=== PATIENT | female | born 1970 | race African-American/Black ===

== ENCOUNTER 2016-08-12 14:18 | Inpatient (IN) | payer MEDICAID, OTHER ==
--- NOTE | 2016-08-12 15:08 | ED ---
General Adult HPI - General Source: patient, RN notes reviewed, old records reviewed Mode of arrival: ambulatory <Xu Davidson - Last Filed: 08/12/16 15:07> <Xu Morris - Last Filed: 08/12/16 21:41> - General Chief complaint: Psychiatric Symptoms Stated complaint: Sent by [facility] Time Seen by Provider: 08/12/16 14:47 - History of Present Illness Initial comments: This is a 46-year-old female here for evaluation of such psychiatric disease. Patient has history of psychiatric disease and drug abuse. [facility], did experience thoughts of suicide. That, (Xu Davidson) - Related Data Allergies Allergy/AdvReac Type Severity Reaction Status Date / Time ibuprofen [From Motrin] Allergy Anaphylaxis Verified 08/12/16 15:38 ketorolac [From Toradol] Allergy Rash/Hives Verified 08/12/16 15:38 quetiapine [From Seroquel] Allergy Swelling Verified 08/12/16 15:38 tramadol [From Ultram] Allergy Rash/Hives Verified 08/12/16 15:38 Review of Systems ROS Other: All systems not noted in ROS Statement are negative. <Xu Davidson - Last Filed: 08/12/16 15:07> ROS Other: All systems not noted in ROS Statement are negative. <Xu Morris - Last Filed: 08/12/16 21:41> ROS Statement: Those systems with pertinent positive or pertinent negative responses have been documented in the HPI. Past Medical History Past Medical History: Osteoarthritis (OA), Thyroid Disorder History of Any Multi-Drug Resistant Organisms: None Reported Additional Past Surgical History / Comment(s): LEFT KNEE AND FOOT SX Past Psychological History: ADD/ADHD, Bipolar, Schizoaffective Disorder Smoking Status: Current every day smoker Past Alcohol Use History: None Reported Past Drug Use History: None Reported <Xu Davidson - Last Filed: 08/12/16 15:07> General Exam General appearance: alert, in no apparent distress Head exam: Present: atraumatic, normocephalic, normal inspection Eye exam: Present: normal appearance, PERRL, EOMI. Absent: scleral icterus, conjunctival injection, periorbital swelling ENT exam: Present: normal exam, mucous membranes moist Neck exam: Present: normal inspection. Absent: tenderness, meningismus, lymphadenopathy Respiratory exam: Present: normal lung sounds bilaterally. Absent: respiratory distress, wheezes, rales, rhonchi, stridor Cardiovascular Exam: Present: regular rate, normal rhythm, normal heart sounds. Absent: systolic murmur, diastolic murmur, rubs, gallop, clicks GI/Abdominal exam: Present: soft, normal bowel sounds. Absent: distended, tenderness, guarding, rebound, rigid Extremities exam: Present: normal inspection, full ROM, normal capillary refill. Absent: tenderness, pedal edema, joint swelling, calf tenderness Back exam: Present: normal inspection Neurological exam: Present: alert, oriented X3, CN II-XII intact Psychiatric exam: Present: normal affect, normal mood Skin exam: Present: warm, dry, intact, normal color. Absent: rash <Xu Davidson - Last Filed: 08/12/16 15:07> Medical Decision Making - Lab Data Result diagrams: 08/12/16 18:22 08/12/16 18:22 <Xu Morris - Last Filed: 08/12/16 21:41> - Lab Data Lab Results 08/12/16 08/12/16 08/12/16 Range/Units 14:57 18:22 18:22 WBC 8.2 (3.8-10.6) k/uL RBC 3.99 (3.80-5.40) m/uL Hgb 11.6 (11.4-16.0) gm/dL Hct 36.8 (34.0-46.0) % MCV 92.3 (80.0-100.0) fL MCH 29.0 (25.0-35.0) pg MCHC 31.4 (31.0-37.0) g/dL RDW 15.9 H (11.5-15.5) % Plt Count 406 (150-450) k/uL Neutrophils % 48 % Lymphocytes % 42 % Monocytes % 5 % Eosinophils % 3 % Basophils % 1 % Neutrophils # 3.9 (1.3-7.7) k/uL Lymphocytes # 3.4 (1.0-4.8) k/uL Monocytes # 0.4 (0-1.0) k/uL Eosinophils # 0.2 (0-0.7) k/uL Basophils # 0.0 (0-0.2) k/uL Hypochromasia Slight Sodium 140 (137-145) mmol/L Potassium 4.2 (3.5-5.1) mmol/L Chloride 104 (98-107) mmol/L Carbon Dioxide 22 (22-30) mmol/L Anion Gap 14 mmol/L BUN 10 (7-17) mg/dL Creatinine 0.80 (0.52-1.04) mg/dL Est GFR (MDRD) Af Amer >60 (>60 ml/min/1.73 sqM) Est GFR (MDRD) Non-Af >60 (>60 ml/min/1.73 sqM) Glucose 119 H (74-99) mg/dL Calcium 9.3 (8.4-10.2) mg/dL Total Bilirubin 0.2 (0.2-1.3) mg/dL AST 15 (14-36) U/L ALT 14 (9-52) U/L Alkaline Phosphatase 60 (38-126) U/L Total Protein 7.5 (6.3-8.2) g/dL Albumin 3.8 (3.5-5.0) g/dL Urine Opiates Screen Not Detected (NotDetected) Ur Oxycodone Screen Not Detected (NotDetected) Urine Methadone Screen Not Detected (NotDetected) Ur Propoxyphene Screen Not Detected (NotDetected) Ur Barbiturates Screen Not Detected (NotDetected) Valproic Acid 64.5 ug/mL U Tricyclic Antidepress Not Detected (NotDetected) Ur Phencyclidine Scrn Not Detected (NotDetected) Ur Amphetamines Screen Not Detected (NotDetected) U Methamphetamines Scrn Not Detected (NotDetected) U Benzodiazepines Scrn Not Detected (NotDetected) Urine Cocaine Screen Not Detected (NotDetected) U Marijuana (THC) Screen Not Detected (NotDetected) Disposition <Xu Davidson - Last Filed: 08/12/16 15:07> Time of Disposition: 21:41 <Xu Morris - Last Filed: 08/12/16 21:41> Clinical Impression: Suicidal ideation, Depression Disposition: ADMITTED IP TO THIS HOSP
[2016-08-12] MEDS ORDERED: LORazepam 1 MG TAB PO STA (17:10)
[2016-08-12 18:32] LABS: Basophils % (A) 1 %; CH 28.8; CHCM 31.4; Eosinophils # (A) 0.2 k/uL (0-0.7); Eosinophils % (A) 3 %; HCT 36.8 % (34.0-46.0); HDW 2.61; HGB 11.6 gm/dL (11.4-16.0); Hypochromasia Slight; Luc # (Auto) 0.19; Luc % (Auto) 2; Lymphocytes # (A) 3.4 k/uL (1.0-4.8); Lymphocytes % (A) 42 %; MCHC 31.4 g/dL (31.0-37.0); MCV 92.3 fL (80.0-100.0); Mean Platelet Volume 6.9; Monocytes # (A) 0.4 k/uL (0-1.0); Monocytes % (A) 5 %; Neutrophils # (A) 3.9 k/uL (1.3-7.7); Neutrophils % (A) 48 %; RBC 3.99 m/uL (3.80-5.40); RDW 15.9 % (11.5-15.5); WBC 8.2 k/uL (3.8-10.6); WBC (Perox) 8.37
[2016-08-12 18:40] LABS: ALT 14 U/L (9-52); AST 15 U/L (14-36); Alkaline Phosphatase 60 U/L (38-126); Anion Gap 14 mmol/L; Blood Urea Nitrogen 10 mg/dL (7-17); Calcium 9.3 mg/dL (8.4-10.2); Carbon Dioxide 22 mmol/L (22-30); Chloride 104 mmol/L (98-107); Glucose 119 mg/dL (74-99); Non-African American GFR(MDRD) >60 (>60 ml/min/1.73 sqM); Potassium 4.2 mmol/L (3.5-5.1); Sodium 140 mmol/L (137-145); Total Bilirubin 0.2 mg/dL (0.2-1.3); Total Protein 7.5 g/dL (6.3-8.2)
[2016-08-12] MEDS ORDERED: ACETAMINOPHEN TAB 500 MG TAB PO STA (18:54)
[2016-08-12] MEDS ORDERED: LORazepam 2 MG/ML SYRINGE IM STA (19:37)
[2016-08-12] MEDS ORDERED: ACETAMINOPHEN TAB 325 MG TAB PO PRN (21:51)
[2016-08-12] MEDS ORDERED: MAG HYDROX/AL HYDROX/SIMETH 30 ML CUP PO PRN (21:51)
[2016-08-12] MEDS ORDERED: MAGNESIUM HYDROXIDE 2,400 MG/10 ML CUP PO PRN (21:51)
[2016-08-12] MEDS ORDERED: busPIRone HCl 5 MG TAB PO PRN (21:52)
[2016-08-12] MEDS ORDERED: MIRTAZAPINE 15 MG TAB PO PRN (21:52)
[2016-08-12] MEDS ORDERED: LORazepam 1 MG TAB PO PRN (21:56)
[2016-08-12] MEDS ORDERED: LORazepam 2 MG/ML SYRINGE IM PRN (21:56)
[2016-08-12] MEDS: PRAZOSIN 1 MG CAP PO SCH (22:57)
[2016-08-12] MEDS: metroNIDAZOLE 500 MG TAB PO SCH (22:57)
[2016-08-12] MEDS: HALOPERIDOL 5 MG TAB PO SCH (22:59)
[2016-08-12] MEDS: LURASIDONE 40 MG TAB PO SCH (22:59)
[2016-08-12] MEDS: LEVOTHYROXINE 50 MCG TAB PO SCH ×2 (23:03→23:15)
[2016-08-13 06:27] VITALS: RESP 18
[2016-08-13] MEDS: LEVOTHYROXINE 50 MCG TAB PO SCH (06:44)
[2016-08-13] MEDS: PANTOPRAZOLE 40 MG TABLET PO SCH (08:28)
[2016-08-13] MEDS: LORATADINE 10 MG TAB PO SCH (10:23)
[2016-08-13] MEDS: ACYCLOVIR 200 MG CAP PO SCH ×2 (10:23→20:11)
[2016-08-13] MEDS: VENLAFAXINE HCL ER 75 MG CAP PO SCH (10:25)
[2016-08-13] MEDS: PROPRANOLOL 20 MG TAB PO SCH (10:25)
[2016-08-13] MEDS: HALOPERIDOL 5 MG TAB PO SCH ×2 (10:26→20:11)
[2016-08-13] MEDS: LURASIDONE 40 MG TAB PO SCH ×2 (10:26→20:12)
[2016-08-13] MEDS: metroNIDAZOLE 500 MG TAB PO SCH ×2 (10:29→20:12)
--- NOTE | 2016-08-13 11:00 | P.HP ---
Psychiatric H&P - . H&P Date: 08/13/16 History & Physical: IDENTIFYING DATA: Ms. Torres is a 46-year-old -Omani woman admitted voluntarily to the psychiatry unit with complaints of depression and suicidal ideation. HISTORY OF PRESENT ILLNESS: Staff from [facility] brought her to the emergency room. She was admitted there on Friday, 2016. She stated that she was feeling well when she arrived at [facility] but over the last couple days she's been feeling more fatigued and depressed. On day of admission she expressed suicidal thought to hang herself. She told the staff at [facility] that she thought about tieing a bedsheet to the fence and hanging herself. She was referred to the [facility] program from the psychiatric unit at [facility] in [place]. She was on the psychiatric unit in [facility] for one week for the treatment complaints of depression and suicidal ideation. Her discharge psychotropic medications included: BuSpar 15 mg 3 times a day, Depakote 2000 mg at bedtime, Haldol 5 mg twice a day, Latuda 60 mg twice a day, Remeron 30 mg at bedtime, prazosin 2 mg at bedtime and Effexor 75 mg daily. She described thoughts of suicide but denied plan or intent. Her primary complaint was extreme fatigue. She initially declined this interview because she felt so fatigued. In addition to the fatigue she feels sad, pessimistic about the future and anhedonic. She described guilt, self criticalness and self dislike over history of drug use. She has lost interest in most of her activities. She has a marked increase in sleep and a decrease in appetite. She described fluctuation in her mood and related to the increased depression and fatigue to the onset of her menstrual cycle. She states that her mood improves and she sometimes "becomes manic" following the end of the menstrual cycle. During the "manic" episode she has a decreased need for sleep and is very energetic and active. The "manic" episodes may last a few days or week. She denied a general sense of anxiety that contributes to her fatigue. She denied obsessions or compulsions. She denied psychotic symptoms such as auditory or visual hallucinations, ideas reference, thought insertion, thought broadcasting or thought control. She denied recent use of alcohol and drugs. She last used heroin cocaine in May 2016. PAST PSYCHIATRIC HISTORY: She was admitted to [facility] in [facility] in 2013 for the treatment of depression and suicidal ideation. She is enrolled with [facility]. She denied past history of suicide attempts. PAST MEDICAL HISTORY: Osteoarthritis, seasonal ALLERGIES and hypothyroid ALLERGIES: Ibuprofen, ketorolac, quetiapine, tramadol SUBSTANCE USE HISTORY: She's been using heroin since she was in her 30s. She was introduced to heroin by her friend and started using because it was "free". She was injecting heroin daily. She last injected in May 2016. She denied that she shares needles. She is hepatitis C and HIV negative. She also smokes cocaine. She's been smoking cocaine since she was 15 years old. She uses cocaine 1-2 times a week spending as much as $300. She was in [facility] in 2014 and was abstinent for about one month after she left the program. She was in a methadone treatment program in [place] for 1 year. She was abstinent from heroin but continued to use cocaine. She relapsed to heroin about 1 year after discharge from the program. She smokes marijuana "occasionally" she denied use of other drugs. She described "occasional" use of alcohol. FAMILY PSYCHIATRIC/SUBSTANCE USE HISTORY: Her father had a history of substance use problem LEGAL HISTORY: She is not on probation, parole or has pending charges. She has a past conviction for retail fraud. SOCIAL HISTORY: She's born and raised in [facility]. Her father is . She has 2 brothers and 6 sisters. She currently lives with her mother who has a dementia in [facility]. She is unemployed and receives social security income for mental health diagnosis. She been and twice. She has 3 adult children and no grandchildren.. MENTAL STATUS EXAM: She presented as a disheveled appearing 46-year-old dark skinned -Omani female who appeared markedly fatigued and yawned throughout the interview. She made eye contact and appeared to attend to the interview. She had no distinguishing features or prominent physical abnormalities. She had a flat facial expression. She was alert and oriented to person, place and time. She showed psychomotor retardation but no abnormal involuntary movements. Her speech was spontaneous with decreased rate, rhythm and volume. She had no articulation difficulties. Her affect was depressed and not reactive. She describes suicidal thoughts but denied intent or plan. She denies homicidal ideation. She expressed feelings of hopelessness, helplessness and worthlessness. She ruminated about the severity of her fatigue. She did not express phobias, ideas reference, paranoid ideation or delusional thoughts. Her thinking was concrete. Her associations were logical. She denied hallucinations and did not appear to be responding to internal stimuli. Global impression of intellect is average. She is unaware of her mental illness and need for treatment. STRENGTHS: Good physical health, stable housing, stable income. WEAKNESSES: Substance use problems. IMPRESSION: She is a 46-year-old female who has a history of a cocaine and opiate use disorder. She presented to unit on transfer from [facility] with complaints of increasing depression and suicidal ideation. She described history of recurrent depression and symptoms suggestive of possible ruben or hypomania. The depression developed over the last 2-3 days and she believes is related to her menstrual cycle. She currently describes suicidal thoughts but denies intent or plan. The most prominent symptoms system marked fatigue. There is no evidence of psychosis. She we treated on an outpatient basis with a combination of psychopharmacology and multimodal therapy. PRINCIPLE DIAGNOSIS: Unspecified depressive disorder, rule out major depressive disorder recurrent, rule out bipolar disorder current episode depressed, opiate use disorder severe, cocaine use disorder severe RECOMMENDATION: Continue inpatient hospitalization. Suicide precautions with 15 minute checks. Consult medicine for initial physical exam and medical history. Continue outpatient medications including Zovirax 200 mg twice a day, BuSpar 50 mg 3 times a day, Depakote ER 2000 mg at bedtime, Haldol 5 mg twice a day, Synthroid 50 g daily, Claritin 5 mg daily, Latuda 60 mg twice a day, Flagyl 500 mg twice a day, Remeron 30 mg at bedtime, Protonix 40 mg before meals breakfast, Minipress 2 mg at bedtime, Inderal 20 mg daily and Effexor XR 75 mg daily. Determine if we can consolidate the multiple medications including a duplicate anti-a psychotic/mood stabilizers and antidepressants. Encourage participation in therapeutic groups and activities. Evaluate clinical status response to treatment daily basis. Discharge back to [facility]. Allergies Allergy/AdvReac Type Severity Reaction Status Date / Time ibuprofen [From Motrin] Allergy Anaphylaxis Verified 08/12/16 22:29 ketorolac [From Toradol] Allergy Rash/Hives Verified 08/12/16 22:29 quetiapine [From Seroquel] Allergy Swelling Verified 08/12/16 22:29 tramadol [From Ultram] Allergy Rash/Hives Verified 08/12/16 22:29 Vital Signs Temp 98.2 F 08/13/16 06:26 Pulse 79 08/13/16 06:26 Resp 18 08/13/16 06:26 BP 113/67 08/13/16 06:26 Pulse Ox 98 08/12/16 22:20 Intake & Output 08/12/16 08/13/16 08/13/16 18:59 06:59 18:59 Weight 117.934 kg Laboratory Last Values WBC 8.2 k/uL (3.8-10.6) 08/12/16 18:22 RBC 3.99 m/uL (3.80-5.40) 08/12/16 18:22 Hgb 11.6 gm/dL (11.4-16.0) 08/12/16 18:22 Hct 36.8 % (34.0-46.0) 08/12/16 18:22 MCV 92.3 fL (80.0-100.0) 08/12/16 18:22 MCH 29.0 pg (25.0-35.0) 08/12/16 18:22 MCHC 31.4 g/dL (31.0-37.0) 08/12/16 18:22 RDW 15.9 % (11.5-15.5) H 08/12/16 18:22 Plt Count 406 k/uL (150-450) 08/12/16 18:22 Neutrophils % 48 % 08/12/16 18:22 Lymphocytes % 42 % 08/12/16 18:22 Monocytes % 5 % 08/12/16 18:22 Eosinophils % 3 % 08/12/16 18:22 Basophils % 1 % 08/12/16 18:22 Neutrophils # 3.9 k/uL (1.3-7.7) 08/12/16 18:22 Lymphocytes # 3.4 k/uL (1.0-4.8) 08/12/16 18:22 Monocytes # 0.4 k/uL (0-1.0) 08/12/16 18:22 Eosinophils # 0.2 k/uL (0-0.7) 08/12/16 18:22 Basophils # 0.0 k/uL (0-0.2) 08/12/16 18:22 Hypochromasia Slight 08/12/16 18:22 Sodium 140 mmol/L (137-145) 08/12/16 18:22 Potassium 4.2 mmol/L (3.5-5.1) 08/12/16 18:22 Chloride 104 mmol/L (98-107) 08/12/16 18:22 Carbon Dioxide 22 mmol/L (22-30) 08/12/16 18:22 Anion Gap 14 mmol/L 08/12/16 18:22 BUN 10 mg/dL (7-17) 08/12/16 18:22 Creatinine 0.80 mg/dL (0.52-1.04) 08/12/16 18:22 Est GFR (MDRD) Af Amer >60 (>60 ml/min/1.73 sqM) 08/12/16 18:22 Est GFR (MDRD) Non-Af >60 (>60 ml/min/1.73 sqM) 08/12/16 18:22 Glucose 119 mg/dL (74-99) H 08/12/16 18:22 Calcium 9.3 mg/dL (8.4-10.2) 08/12/16 18:22 Total Bilirubin 0.2 mg/dL (0.2-1.3) 08/12/16 18:22 AST 15 U/L (14-36) 08/12/16 18:22 ALT 14 U/L (9-52) 08/12/16 18:22 Alkaline Phosphatase 60 U/L (38-126) 08/12/16 18:22 Total Protein 7.5 g/dL (6.3-8.2) 08/12/16 18:22 Albumin 3.8 g/dL (3.5-5.0) 08/12/16 18:22 TSH 1.930 mIU/L (0.465-4.680) 08/12/16 18:22 Urine Opiates Screen Not Detected (NotDetected) 08/12/16 14:57 Ur Oxycodone Screen Not Detected (NotDetected) 08/12/16 14:57 Urine Methadone Screen Not Detected (NotDetected) 08/12/16 14:57 Ur Propoxyphene Screen Not Detected (NotDetected) 08/12/16 14:57 Ur Barbiturates Screen Not Detected (NotDetected) 08/12/16 14:57 Valproic Acid 64.5 ug/mL 08/12/16 18:22 U Tricyclic Antidepress Not Detected (NotDetected) 08/12/16 14:57 Ur Phencyclidine Scrn Not Detected (NotDetected) 08/12/16 14:57 Ur Amphetamines Screen Not Detected (NotDetected) 08/12/16 14:57 U Methamphetamines Scrn Not Detected (NotDetected) 08/12/16 14:57 U Benzodiazepines Scrn Not Detected (NotDetected) 08/12/16 14:57 Urine Cocaine Screen Not Detected (NotDetected) 08/12/16 14:57 U Marijuana (THC) Screen Not Detected (NotDetected) 08/12/16 14:57 08/13/16 08:15 08/13/16 10:30
[2016-08-13] MEDS: PRAZOSIN 1 MG CAP PO SCH (20:12)
[2016-08-13] MEDS ORDERED: DIVALPROEX ER 500 MG TAB.ER.24H PO SCH (21:00)
[2016-08-14] MEDS: LEVOTHYROXINE 50 MCG TAB PO SCH (05:41)
[2016-08-14 07:16] VITALS: BP 117/59; PULSE 86; TEMP 97.6
[2016-08-14] MEDS: LORATADINE 10 MG TAB PO SCH (09:32)
[2016-08-14] MEDS: metroNIDAZOLE 500 MG TAB PO SCH (09:32)
[2016-08-14] MEDS: ACYCLOVIR 200 MG CAP PO SCH (09:33)
[2016-08-14] MEDS: LURASIDONE 40 MG TAB PO SCH (09:33)
[2016-08-14] MEDS: HALOPERIDOL 5 MG TAB PO SCH (09:33)
[2016-08-14] MEDS: PROPRANOLOL 20 MG TAB PO SCH (09:34)
[2016-08-14] MEDS: PANTOPRAZOLE 40 MG TABLET PO SCH (09:34)
[2016-08-14] MEDS: VENLAFAXINE HCL ER 75 MG CAP PO SCH (09:34)
[2016-08-14] MEDS: NICOTINE POLACRILEX 2 MG GUM BUCCAL PRN ×2 (10:29→13:42)
--- NOTE | 2016-08-14 12:38 | P.DS ---
Providers Date of admission: 08/12/16 21:47 Attending physician: Jt Chen MD Consults: 08/12/16 21:51 Consult Physician Routine Consulting Provider: Mei Vaz Consult Reason/Comments: Medical Management Do you want consulting provider notified?: Yes, Notify in am Primary care physician: Stated None - Discharge Diagnosis(es) (1) Opioid use disorder, severe, dependence Current Visit: Yes Status: Chronic Priority: High (2) Cocaine use disorder, severe, dependence Current Visit: Yes Status: Chronic Priority: High (3) Depression Current Visit: Yes Status: Acute Priority: Medium (4) Suicidal ideation Current Visit: Yes Status: Acute Priority: Low Hospital Course: Ms. Torres is a 46-year-old -Malawian woman admitted voluntarily to the psychiatry unit with complaints of depression and suicidal ideation. Staff from [facility] brought her to the emergency room. She was admitted there on 08/02/2016. She stated that she was feeling well when she arrived at [facility] but over the last couple days she' s been feeling more fatigued and depressed. On day of admission she expressed suicidal thought to hang herself. She told the staff at [facility] that she thought about tieing a bedsheet to the fence and hanging herself. She was referred to the [facility] program from the psychiatric unit at [facility]. She was on the psychiatric unit in [facility] for one week for the treatment complaints of depression and suicidal ideation. Her discharge psychotropic medications included: BuSpar 15 mg 3 times a day, Depakote 2000 mg at bedtime, Haldol 5 mg twice a day, Latuda 60 mg twice a day, Remeron 30 mg at bedtime, prazosin 2 mg at bedtime and Effexor 75 mg daily. She described thoughts of suicide but denied plan or intent. Her primary complaint was extreme fatigue. She initially declined this interview because she felt so fatigued. In addition to the fatigue she feels sad, pessimistic about the future and anhedonic. She described guilt, self criticalness and self dislike over history of drug use. She has lost interest in most of her activities. She has a marked increase in sleep and a decrease in appetite. She described fluctuation in her mood and related to the increased depression and fatigue to the onset of her menstrual cycle. She states that her mood improves and she sometimes "becomes manic" following the end of the menstrual cycle. During the "manic" episode she has a decreased need for sleep and is very energetic and active. The "manic" episodes may last a few days or week. She denied a general sense of anxiety that contributes to her fatigue. She denied obsessions or compulsions. She denied psychotic symptoms such as auditory or visual hallucinations, ideas reference, thought insertion, thought broadcasting or thought control. She denied recent use of alcohol and drugs. She last used heroin cocaine in May 2016. She was admitted to [facility] in [facility] in 2013 for the treatment of depression and suicidal ideation. She is enrolled with [facility]. She denied past history of suicide attempts. She's been using heroin since she was in her 30s. She was introduced to heroin by her friend and started using because it was "free". She was injecting heroin daily. She last injected in May 2016. She denied that she shares needles. She is hepatitis C and HIV negative. She also smokes cocaine. She's been smoking cocaine since she was 15 years old. She uses cocaine 1-2 times a week spending as much as $300. She was in [facility] in 2014 and was abstinent for about one month after she left the program. She was in a methadone treatment program in [place] for 1 year. She was abstinent from heroin but continued to use cocaine. She relapsed to heroin about 1 year after discharge from the program. She smokes marijuana "occasionally" she denied use of other drugs. She described "occasional" use of alcohol. We admitted her to the psychiatric unit under the care of this magnetic tape typewriter operator. We provided a biopsychosocial assessment. The parts consultant completed the initial physical exam and medical history and diagnosed tobacco use disorder, osteoarthritis and hypothyroidism. We continued her outpatient medications including acyclovir 200 mg twice a day, BuSpar 50 mg 3 times a day, Depakote 2000 mg at bedtime, Haldol 5 mg twice a day, Synthroid 50 g daily, Claritin 5 mg daily, Latuda 60 mg twice a day, Flagyl 500 mg twice a day, Remeron 30 mg at bedtime, Protonix 40 mg before meals breakfast, Minipress 2 mg at bedtime, Inderal 20 mg daily and Effexor 75 mg daily. Her primary complaint that her sensation was extreme fatigue. She spent the first day of her hospital stay in bed only coming out for meals and interviews with staff. She attributed her depression and suicidal thoughts to her extreme fatigue. She alleged that she becomes fatigued during her menstrual cycle and her outpatient psychiatrist usually increases the dose of her psychiatric medications temporarily. At the end of her cycle the fatigue and depression fades and she returns to her normal dose of her psychotropic medications. On the second her hospitalization she reported a marked decrease in her fatigue. She denied depression or suicidal ideation. She requested to be current to [facility] to resume her substance abuse treatment. She came out of her bed dressed in participation in therapeutic groups and activities. She posed no management problem and displayed no episodes of behavioral dyscontrol or self-harm. She denied suicidal thoughts or wishes. She denied psychotic symptoms such as auditory or visual hallucinations, ideas reference, thought insertion or thought broadcasting. She showed no signs or symptoms of ruben or hypomania. She was pleasant on approach and her thinking was coherent, organized and goal directed. Patient Condition at Discharge: Stable Plan - Discharge Summary New Discharge Prescriptions: Nicotine Polacrilex [Quit 2] 2 mg BUCCAL Q2H PRN #28 lozenge PRN Reason: Nicotine Cravings Discharge Medication List Acetaminophen Tab [Tylenol] 1,000 mg PO BID PRN 08/12/16 [History] Calcium Carb/Magnesium Hydrox [Rolaids Chewable Tablet] 1 tab PO TID 08/12/16 [ History] Divalproex Sodium [Depakote] 2,000 mg PO HS 08/12/16 [History] Levothyroxine Sodium [Synthroid] 50 mcg PO DAILY 08/12/16 [History] Multivitamins, Thera [Multivitamin (formulary)] 1 tab PO DAILY 08/12/16 [History ] Omeprazole [PriLOSEC] 20 mg PO DAILY 08/12/16 [History] Thiamine [Vitamin B-1] 100 mg PO DAILY 08/12/16 [History] Acyclovir [Zovirax] 200 mg PO BID cap 08/14/16 [Rx] Haloperidol [Haldol] 5 mg PO BID tab 08/14/16 [Rx] Loratadine [Claritin] 5 mg PO DAILY tab 08/14/16 [Rx] Lurasidone [Latuda] 60 mg PO BID tab 08/14/16 [Rx] Mirtazapine [Remeron] 30 mg PO HS PRN tab 08/14/16 [Rx] Nicotine Polacrilex [Quit 2] 2 mg BUCCAL Q2H PRN #28 lozenge 08/14/16 [Rx] Prazosin [Minipress] 2 mg PO HS cap 08/14/16 [Rx] Propranolol [Inderal] 20 mg PO DAILY tab 08/14/16 [Rx] Venlafaxine HCl ER [Effexor XR] 75 mg PO DAILY cap 08/14/16 [Rx] busPIRone HCl [Buspar] 15 mg PO TID PRN tab 08/14/16 [Rx] metroNIDAZOLE [Flagyl] 500 mg PO BID tab 08/14/16 [Rx] Follow up Appointment(s)/Referral(s): None,Stated [Primary Care Provider] - 1-2 days Discharge Disposition: HOME SELF-CARE
--- NOTE | 2016-08-14 16:15 | P.CONS ---
History of Present Illness - Reason for Consult Consult date: 08/13/16 Medical management - History of Present Illness This is a 46-year-old -[place] female with past history of osteoarthritis in the knees and back, gastroesophageal reflux disease, hypothyroidism. Her primary care physician is at [facility] in [place]. Patient states that she has been at [facility] for 1 week due to cocaine and heroin abuse. She states she usually smokes cocaine and shoots heroin. She denies any marijuana or alcohol use. Patient states that she has been depressed with suicidal thoughts and was going to hang herself with a bed sheet. Staff brought her to [facility] emergency center for evaluation. TSH 1.930, valproic acid 64.5. Patient has been admitted to the mental health unit. Patient is also on Flagyl for bacterial vaginosis. Review of Systems All systems: negative Constitutional: Denies chills, Denies fever Eyes: denies blurred vision, denies pain Ears, nose, mouth and throat: Denies headache, Denies sore throat Cardiovascular: Denies chest pain, Denies shortness of breath Respiratory: Denies cough Gastrointestinal: Denies abdominal pain, Denies diarrhea, Denies nausea, Denies vomiting Genitourinary: Denies dysuria, Denies hematuria Musculoskeletal: Denies myalgias Integumentary: Denies pruritus, Denies rash Neurological: Denies numbness, Denies weakness Psychiatric: Reports depression, Denies anxiety Endocrine: Denies fatigue, Denies weight change Past Medical History Past Medical History: GERD/Reflux, Osteoarthritis (OA), Thyroid Disorder History of Any Multi-Drug Resistant Organisms: None Reported Additional Past Surgical History / Comment(s): Left Knee arthroscopically and Left bunionectomy and lengthening of the Achilles tendon Past Anesthesia/Blood Transfusion Reactions: No Reported Reaction Past Psychological History: ADD/ADHD, Bipolar, Schizoaffective Disorder Smoking Status: Current every day smoker Past Alcohol Use History: Occasional Additional Past Alcohol Use History / Comment(s): Patient is a smoker one and half packs per day since she was 15 years of age. She also has history of cocaine and heroin use. Patient shoots heroin. She denies any history of hepatitis C. Past Drug Use History: Cocaine, Heroin Additional Drug Use History / Comment(s): Pt. admits to abusing cocaine and heroin in May. Patient was admitted to [facility] 08/02/16-08/12/16. - Past Family History Mother History Unknown: Yes Additional Family Medical History / Comment(s): Mother is alive at age 79 with history of diabetes, chronic kidney disease, Alzheimer's dementia, CHF. Father History Unknown: Yes Additional Family Medical History / Comment(s): Father at age 79 from a myocardial infarction. Brother(s) Additional Family Medical History / Comment(s): Patient has 1 brother and 8 half -brothers with no major medical problems. Patient has 6/2 sisters with no major medical problems. Patient has 2 sons and one daughter with no major medical problems. Medications and Allergies Home Medications Medication Instructions Recorded Confirmed Type Acetaminophen Tab [Tylenol] 1,000 mg PO BID PRN 08/12/16 08/12/16 History Calcium Carb/Magnesium Hydrox 1 tab PO TID 08/12/16 08/12/16 History [Rolaids Chewable Tablet] Divalproex Sodium [Depakote] 2,000 mg PO HS 08/12/16 08/12/16 History Levothyroxine Sodium [Synthroid] 50 mcg PO DAILY 08/12/16 08/12/16 History Multivitamins, Thera [Multivitamin 1 tab PO DAILY 08/12/16 08/12/16 History (formulary)] Omeprazole [PriLOSEC] 20 mg PO DAILY 08/12/16 08/12/16 History Thiamine [Vitamin B-1] 100 mg PO DAILY 08/12/16 08/12/16 History Cetirizine HCl [Zyrtec] 5 mg PO DAILY 08/14/16 08/14/16 History Allergies Allergy/AdvReac Type Severity Reaction Status Date / Time ibuprofen [From Motrin] Allergy Anaphylaxis Verified 08/12/16 22:29 ketorolac [From Toradol] Allergy Rash/Hives Verified 08/12/16 22:29 quetiapine [From Seroquel] Allergy Swelling Verified 08/12/16 22:29 tramadol [From Ultram] Allergy Rash/Hives Verified 08/12/16 22:29 Physical Exam Vitals: Vital Signs Temp Pulse Pulse Pulse Resp BP BP 08/13/16 06:26 98.2 F 79 18 113/67 08/12/16 22:20 97.8 F 96 16 08/12/16 14:42 98.5 F 90 18 132/95 BP Pulse Ox 08/13/16 06:26 08/12/16 22:20 149/84 98 08/12/16 14:42 100 Gen: This is a 46-year-old -British female. She is cooperative and appears to be in no acute distress. HEENT: Head is atraumatic, normocephalic. Pupils equal, round. Sclerae is anicteric. NECK: Supple. No JVD. No lymphadenopathy. No thyromegaly. LUNGS: Clear to auscultation. No wheezes or rhonchi. No intercostal retractions. HEART: Regular rate and rhythm. No murmur. ABDOMEN: Soft. Bowel sounds are present. No masses. No tenderness. EXTREMITIES: No pedal edema. No calf tenderness. NEUROLOGICAL: Patient is awake, alert and oriented x3. Cranial nerves 2 through 12 are grossly intact. Results CBC & Chem 7: 08/12/16 18:22 08/12/16 18:22 Labs: Abnormal Lab Results - Last 24 Hours (Table) 08/12/16 08/12/16 Range/Units 18:22 18:22 RDW 15.9 H (11.5-15.5) % Glucose 119 H (74-99) mg/dL Assessment and Plan Plan: 1. Depression recurrent. Patient admitted to the mental health unit. Continue current plan of care. 2. Tobacco use and dependence. Continue nicotine patch. 3. Bacterial vaginosis. Continue Flagyl as previously directed. 4. Gastroesophageal reflux disease. Continue Prilosec. 5. Hypothyroidism. Continue Synthroid. Impression and plan of care have been directed as dictated by the signing physician. Ayla Morin nurse practitioner acting as scribe for signing physician.
[2016-08-16] MEDS ORDERED: metroNIDAZOLE 500 MG TAB PO SCH (22:00)
== END 2016-08-14 15:33 | disposition home or self-care (01) | DRG 885 ==
LOC: EC 14:18 → EDBD 14:18 → 3MHU 21:47
PROVIDERS: ADMIT Psychiatry & Neurology Psychiatry; ATTEND Psychiatry & Neurology Psychiatry
DX: F33.9 Major depressive disorder, recurrent, unspecified (principal); F11.20 Opioid dependence, uncomplicated; R45.851 Suicidal ideations; F14.20 Cocaine dependence, uncomplicated; E03.9 Hypothyroidism, unspecified; F17.200 Nicotine dependence, unspecified, uncomplicated; F25.9 Schizoaffective disorder, unspecified; K21.9 Gastro-esophageal reflux disease without esophagitis; M17.0 Bilateral primary osteoarthritis of knee; N76.0 Acute vaginitis; Z79.899 Other long term (current) drug therapy; Z88.5 Allergy status to narcotic agent
CPT/HCPCS: 36415; 80053; 80164; 80306; 82075; 84443; 85025